=== PATIENT | male | born 1930 | race Caucasian/White ===

== ENCOUNTER → 2018-03-15 | Outpatient (CLI) | payer OTHER ==
[~2018-03-15] MED LIST: ALBU90OI INH; ASPI81EC PO; AZIT250 PO; CALCAVITDA PO; CHOL10002 PO; DICL75ER PO; FISH1000 PO; GABA600 PO; HYDACE5 PO; MAGOXI400 PO; VITAMIN B PLUS PO
== END | disposition home or self-care (01) ==
LOC: PLD 15:19 → LAB SHORT 15:19
DX: C44.321 Squamous cell carcinoma of skin of nose (principal); D04.39 Carcinoma in situ of skin of other parts of face; L57.0 Actinic keratosis
CPT/HCPCS: 88305

== ENCOUNTER → 2019-03-27 | Outpatient (CLI) | payer OTHER | LOC: PLD 16:33 → LAB SHORT 16:33 | DX: D48.5 Neoplasm of uncertain behavior of skin (principal) | CPT/HCPCS: 88305 ==